=== PATIENT | female | born 1990 | race Caucasian/White ===

== ENCOUNTER → 2016-07-26 | Outpatient (CLI) | payer BC, OTHER | END | disposition home or self-care (01) | LOC: C.PAPS 16:03 | PROVIDERS: ATTEND Obstetrics & Gynecology | DX: Z01.419 Encounter for gynecological examination (general) (routine) without abnormal findings (principal) ==

== ENCOUNTER 2020-08-01 16:02 | Inpatient (IN) ==
[2020-08-01] MEDS ORDERED: OXYTOCIN 30 UNITS/500 ML BAG IV PRN ×2 (18:35→19:27)
--- NOTE | 2020-08-01 18:53 | History & Physical Report ---
Date of Service August 01, 2020 Assessment & Plan (1) : 29 y/o at 40 6/7 wga presenting for post-EDC IOL VSS Fetus cat 1 Labor - kaufman bulb placement and risks discussed including risk of ROM, pt verbalized understanding and amenable. 35cc kaufman placed w/o difficulty, pt tolerated procedure well. Will start pit when nursing staff is available to do so GBS neg Epidural PRN Admission and Anticipated Discharge Date Admission Date: August 01, 2020 History of Present Illness Chief Complaint: IOL Primary Care Provider: Jeremiah Kim MD 29 y/o at 40 6/7 wga w/ TEJ 07/26 by LMP 10/19 c/w [address] [place] [address] who presents for IOL. +FM; denies regular ctx, LOF, VB PNI: Hypothyroid - on synthroid 125mcg/d CF carrier, FOB neg Past OUTREACH LIAISON Hx: G1 SAB G2 SAB G3 current Menarche 12, irreg cycles due to PCOS Denies hx STIs 2017 pap neg cytology, no hx abnl pap Allergies Allergy/AdvReac Type Severity Reaction Status Date / Time No Known Allergies Allergy Verified 08/01/20 18:20 Home Medications Medication Instructions Recorded Confirmed Type PNV cmb#95-ferrous fumarate-FA 1 tab PO QAM 07/13/18 08/01/20 History [] cetirizine [Zyrtec] 10 mg PO QAM 07/13/18 08/01/20 History levothyroxine 112 mcg capsule 125 mcg PO DAILY cap 06/29/20 08/01/20 History Patient History Medical History (Updated 06/29/20 @ 15:50 by Amina Dent MD) Anxiety HX Environmental allergies CATS/DOGS History of chicken pox Hypothyroidism Ovarian cyst Polycystic ovarian syndrome Scoliosis Surgical History (Updated 01/05/20 @ 10:59 by Esme Gutierrez) History of myringotomy S/P wisdom tooth extraction Family History (Updated 01/05/20 @ 11:00 by Esme Gutierrez) Grandfather (Paternal) Family history of esophageal cancer Grandmother (Maternal) Hypertension Mother Gestational diabetes Denies family history of Ovarian cancer Breast cancer Colorectal cancer Social History (Updated 01/05/20 @ 11:01 by Esme Gutierrez) Smoking Status: Never smoker Second Hand Exposure: No; Hx Alcohol Use: No Hx Substance Use: No Preferred Language: Afghan Communication Ability: Effective Driving Teacher Required: No Beliefs That Will Affect Care: None marital status: marital status details: Arnoldo Anderson (28) [phone] Current Living Situation: Spouse Current Living Situation Comment: lives with spouse, dogs current occupational status: employed current occupation: teacher [employer] Feels Safe at Home: Yes Assistive Devices: None Physical Exam Constitutional: WD/WN, vitals as above Respiratory: normal respiratory effort; no respiratory distress and no labored breathing Psychiatric: A+Ox3, euthymic affect Genitourinary: OB Exam Abdomen: + vertex and + estimated weight (7-8) Manual OB Exam: + cervical dilation 1 cm, + cervical effacement 50% and + station -2 OB Exam Monitor Tracing: + external FHT monitor used, + external uterine monitor used (irreg ctx) and + category I (135/mod/+accel/-decel) Results & Data ([facility]) Vital Signs (Past 12 Hours) Vital Signs Pulse BP 08/01/20 18:19 94 H 112/76 Laboratory Results OB Labs: Blood Type A Positive 01/19/20 Antibody Screen NEGATIVE 01/19/20 Hemoglobin 11.0 g/dL (12.0-16.0) L 05/03/20 Hematocrit 31.9 % (37-47) L 05/03/20 Mean Corpuscular Volume 91.5 fL (80-100) 01/19/20 Platelet Count 236 K/uL (130-400) 01/19/20 Varicella-Zoster IgG Antibody 1174.00 index 04/26/19 Rubella IgG Antibody Immune (Immune) 01/19/20 Rapid Plasma Reagin Nonreactive (Nonreactive) 01/19/20 Hepatitis B Surface Antigen Neg (Neg) 01/19/20 HIV (1&2) Ab and P24 Ag, 4th Gener Neg (Neg) 01/19/20 Glucose 1 Hour 50 gm Load 135 mg/dl (70-130) H 05/03/20 Maternal Serum Alpha Fetoprotein 34.1 ng/mL 02/09/20 OB Optional Labs: Chlamydia trachomatis RNA NOT DETECTED (NOT DETECTED) 01/19/20 Neisseria gonorrhoeae RNA NOT DETECTED (NOT DETECTED) 01/19/20 Thyroid Stimulating Hormone (TSH) 1.400 uIu/ml (0.300-4.500) 01/19/20 Alpha Fetoprotein Triple Screen SEE NOTE 02/09/20 Labs Reviewed: low risk panorama carrier CF 28 week 2 hr gtt nl. akh GBS neg Diagnostic Findings Ant placenta Code Status & VTE Plan VTE Prophylaxis Plan VTE Prophylaxis will be ordered: Yes Coding Level of Care Code None Diagnoses Z34.90
[2020-08-01 19:14] LABS: Hematocrit (blood only) 33.9 % (37-47); Hemoglobin 11.4 g/dL (12.0-16.0); Mean Corpuscular Hemoglobin 30.6 pg (25-34); Mean Corpuscular Hgb Conc 33.6 g/dL (32-36); Mean Corpuscular Volume 90.9 fL (80-100); Mean Platelet Volume 11.3 fL (7.4-10.4); Platelet Count 162 K/uL (130-400); Red Blood Count 3.73 M/uL (4.2-5.4); White Blood Count 5.05 K/uL (4.8-10.8)
--- NOTE | 2020-08-01 22:59 | Labor Progress Brief Note ---
Date of Service August 01, 2020 Assessment & Plan (1) : 29 y/o at 40 6/7 wga presenting for post-EDC IOL VSS Fetus cat 1 Labor - kaufman bulb out, will start pit GBS neg Epidural PRN Admission and Anticipated Discharge Date Admission Date: August 01, 2020 Physical Exam Genitourinary: Manual OB Exam: + cervical dilation 3 cm, + cervical effacement 50% and + station -2 OB Exam Monitor Tracing: + external FHT monitor used, + external uterine monitor used (q3-5) and + category I (150/mod/+accel/-decel) Results & Data ([facility]) Vital Signs (Past 12 Hours) Vital Signs Temp Pulse Resp BP 08/01/20 19:30 98.1 F 87 18 103/64 08/01/20 19:24 76 99/57 L 08/01/20 18:19 94 H 112/76 08/01/20 18:17 97.7 F 18 Coding Level of Care Code None Diagnoses Z34.90
[2020-08-01] MEDS: LACTATED RINGER'S 1,000 ML IV PRN (23:54)
[2020-08-02] MEDS ORDERED: diphenhydrAMINE 50 MG/ML VIAL IV PRN (01:44)
[2020-08-02] MEDS ORDERED: NALOXONE HCL 0.4 MG/1 ML VIAL/CARP IV PRN (01:44)
[2020-08-02] MEDS ORDERED: ONDANSETRON INJ 2 MG/ML 2 ML VIAL IV PRN (01:44)
[2020-08-02] MEDS ORDERED: ePHEDrine sulfate 50 MG/ML AMP IV PRN (01:44)
[2020-08-02] MEDS ORDERED: fentaNYL 2MCG/ML ROPIVACAINE 1.25MG/ML 100 ML BAG EPI PRN ×2 (01:44→11:23)
[2020-08-02] MEDS ORDERED: NALOXONE HCL 1 MG in SODIUM CHLORIDE 0.9% 1000ML 1,000 ML IV PRN (01:44)
[2020-08-02] MEDS ORDERED: ePHEDrine sulfate 50 MG/ML AMP ONE (01:47)
[2020-08-02] MEDS ORDERED: SODIUM CHLORIDE 0.9% INJ 10 ML VIAL ONE ×2 (01:47→10:59)
[2020-08-02] MEDS ORDERED: fentaNYL citrate 100 MCG/2 ML VIAL ONE (01:47)
[2020-08-02] MEDS ORDERED: BUPIVACAINE 0.25% 30 ML VIAL ONE ×2 (01:47→10:59)
[2020-08-02] MEDS ORDERED: fentaNYL 2MCG/ML ROPIVACAINE 1.25MG/ML 100 ML BAG EPI ONE (01:48)
--- NOTE | 2020-08-02 01:48 | Anesthesiology Consultation ---
Date of Service August 02, 2020 Assessment & Plan (1) Encounter for pre-operative examination: Chart Review Chart Review: Acceptable Risk for Labor Epidural Consults Requested none ASA ASA2 Proposed Anesthesia Anesthesia Type: Labor Epidural Risk / Benefits Reviewed With: PT / POA / Parent / Guardian, Accepts Plan and Informed Consent Obtained History Height/Weight Height: 5 ft 2 in Weight: 74.843 kg Allergies Allergy/AdvReac Type Severity Reaction Status Date / Time No Known Allergies Allergy Verified 08/01/20 18:20 Medications Home Medications Medication Instructions Recorded Confirmed Last Taken PNV cmb#95-ferrous fumarate-FA 1 tab PO QAM 07/13/18 08/01/20 07/30/20 20:00 [] cetirizine [Zyrtec] 10 mg PO QAM 07/13/18 08/01/20 08/01/20 06:00 levothyroxine 112 mcg capsule 125 mcg PO DAILY cap 06/29/20 08/01/20 08/01/20 06:00 Active Medications Generic Name Dose Route Start Last Admin Trade Name Freq PRN Reason Stop Dose Admin Lactated Ringer's 1,000 mls @ 125 mls/hr 08/01/20 18:35 08/01/20 23:54 Lr IV 08/03/20 18:34 125 mls/hr .Q8H PRN Administration L&D Protocol Protocol Oxytocin 30 units in 500 mls @ 2 mls/hr 08/01/20 19:27 08/01/20 23:58 Pitocin IV 08/03/20 19:26 0.12 units/hr .Q24H PRN 2 mls/hr Labor Induction/Augmentation Administration Protocol 0.12 UNITS/HR Past Medical History Medical History Anxiety HX Environmental allergies CATS/DOGS History of chicken pox Hypothyroidism Ovarian cyst Polycystic ovarian syndrome Scoliosis Exercise / Class Metabolic Activity II 4-5 Yardwork/Stairs/Walk up hill Past Family History Family History Grandfather (Paternal) Family history of esophageal cancer Grandmother (Maternal) Hypertension Mother Gestational diabetes Denies family history of Ovarian cancer Breast cancer Colorectal cancer Past Surgical History Surgical History History of myringotomy S/P wisdom tooth extraction Past Anesthesia History No Hx of Anesthesia Complications and No Family Hx of Anesthesia Complications History of PONV No Hx of PONV and No Hx of Motion Sickness Social History Smoking Status: Never smoker Hx Alcohol Use: No Hx Substance Use: No substance use type: does not use Physical Exam Vital Signs Last Vital Signs Temp 98.1 F 08/01/20 19:30 Pulse 82 08/02/20 01:06 Resp 18 08/01/20 19:30 BP 101/58 L 08/02/20 01:06 ENMT Mouth: no dentition abnormality Thyromental Distance: > or= 3.5 Finger Breadths Mallampati Class: II Neck normal visual inspection Respiratory normal respiratory effort Auscultation: lungs clear to auscultation bilaterally Cardiovascular Rate/Rhythm: regular rate and regular rhythm Testing Laboratory Results 08/01/20 18:40
[2020-08-02] MEDS: LACTATED RINGER'S 1,000 ML IV PRN ×2 (03:51→11:30)
--- NOTE | 2020-08-02 06:18 | Labor Progress Brief Note ---
Date of Service August 02, 2020 Subjective Comfortable w/ epidural, chux appears to be c/w srom Assessment & Plan (1) : 29 y/o at 40 6/7 wga presenting for post-EDC IOL VSS Fetus cat 1 Labor - pit at 4, making good progress. Appears to have srom b/w last exam and now, forebag was palpated and arom'd. Continue to monitor GBS neg Epidural in place Admission and Anticipated Discharge Date Admission Date: August 01, 2020 Physical Exam Genitourinary: Manual OB Exam: + cervical dilation 4 cm, + cervical effacement 70%, + station -2 and + amniotic fluid (AROM forebag) clear OB Exam Monitor Tracing: + external FHT monitor used, + external uterine monitor used (q3-4) and + category I (135/mod/+accel/-decel) Results & Data ([facility]) Vital Signs (Past 12 Hours) Vital Signs Temp Pulse Resp BP Pulse Ox 08/02/20 06:12 82 95 08/02/20 06:09 107 H 94 08/02/20 06:07 96 H 96 08/02/20 06:03 80 100/59 L 08/02/20 06:02 79 94 08/02/20 05:57 79 95 08/02/20 05:52 82 94 08/02/20 05:48 63 99/56 L 94 08/02/20 05:47 75 94 08/02/20 05:42 86 93 08/02/20 05:38 71 94 08/02/20 05:37 91 H 95 08/02/20 05:33 71 90/51 L 94 08/02/20 05:32 73 95 08/02/20 05:27 82 93 08/02/20 05:22 76 93 08/02/20 05:19 67 84/51 L 08/02/20 05:17 75 93 08/02/20 05:12 83 94 08/02/20 05:10 71 94 08/02/20 05:07 78 94 08/02/20 05:03 75 87/51 L 08/02/20 05:02 78 94 08/02/20 05:00 75 94 08/02/20 04:57 78 94 08/02/20 04:53 89 94 08/02/20 04:52 87 96 08/02/20 04:47 79 85/52 L 95 08/02/20 04:42 77 94 08/02/20 04:37 76 95 08/02/20 04:32 69 88/52 L 97 08/02/20 04:27 73 96 08/02/20 04:22 72 98 08/02/20 04:18 63 94/52 L 08/02/20 04:17 72 97 08/02/20 04:12 103 H 98 08/02/20 04:10 70 94 08/02/20 04:07 94 H 97 08/02/20 04:05 97.7 F 18 08/02/20 04:03 70 97/57 L 08/02/20 04:02 65 93 08/02/20 04:01 73 91 08/02/20 03:57 89 95 08/02/20 03:54 68 94 08/02/20 03:52 85 97 08/02/20 03:47 82 98/58 L 97 08/02/20 03:46 78 94 08/02/20 03:42 79 97 08/02/20 03:40 77 94 08/02/20 03:37 77 96 08/02/20 03:34 93 H 94 08/02/20 03:33 111 H 92/54 L 08/02/20 03:32 111 H 96 08/02/20 03:27 96 H 96 08/02/20 03:22 73 95 08/02/20 03:19 100 H 92/57 L 08/02/20 03:17 71 95 08/02/20 03:15 70 94 08/02/20 03:12 93 H 96 08/02/20 03:09 74 94 08/02/20 03:07 88 95 08/02/20 03:03 76 94 08/02/20 03:02 73 97/66 L 97 08/02/20 02:57 87 99 08/02/20 02:52 87 99 08/02/20 02:47 83 97/64 L 97 08/02/20 02:42 76 95 08/02/20 02:37 73 97 08/02/20 02:34 80 105/65 08/02/20 02:32 80 97 08/02/20 02:27 74 97 08/02/20 02:22 89 97 08/02/20 02:17 85 109/61 98 08/02/20 02:13 93 H 110/74 08/02/20 02:12 93 H 99 08/02/20 02:11 90 107/74 08/02/20 02:08 96 H 114/74 08/02/20 02:07 93 H 99 08/02/20 02:05 94 H 120/77 08/02/20 02:02 95 H 125/73 100 08/02/20 01:58 89 130/82 08/02/20 01:57 102 H 100 08/02/20 01:56 90 121/79 08/02/20 01:52 93 H 100 08/02/20 01:48 89 126/80 08/02/20 01:47 84 100 08/02/20 01:06 82 101/58 L 08/02/20 00:36 91 H 103/73 08/02/20 00:15 98.1 F 08/02/20 00:00 76 96/53 L 08/01/20 23:38 75 85/51 L 08/01/20 19:30 98.1 F 87 18 103/64 08/01/20 19:24 76 99/57 L 08/01/20 18:19 94 H 112/76 08/01/20 18:17 97.7 F 18 Coding Level of Care Code None Diagnoses Z34.90
[2020-08-02] MEDS: LEVOTHYROXINE SODIUM 125 MCG TABLET PO SCH (14:37)
[2020-08-02] MEDS ORDERED: oxyCODONE/ACETAMINOPHEN 5mg/325mg TAB PO PRN (14:49)
[2020-08-02] MEDS ORDERED: DIPHTHERIA/TETANUS/PERTUSSIS 0.5 ML SYR/VIAL IM ONE (14:49)
[2020-08-02] MEDS ORDERED: OXYTOCIN 30 UNITS/500 ML BAG IV PRN (14:49)
[2020-08-02] MEDS ORDERED: bisacodyL 10 MG SUPP PR PRN (14:49)
[2020-08-02] MEDS ORDERED: SUPERCREAM 0.870% 15 GM JAR EXT PRN (14:49)
[2020-08-02] MEDS ORDERED: HYDROCORTISONE ACETATE 25 MG SUPP PR PRN (14:49)
[2020-08-02] MEDS ORDERED: BENZOCAINE 20% AER SPR 82.5 GM CAN EXT PRN (14:49)
--- NOTE | 2020-08-02 14:56 | Delivery Summary ---
Vaginal Delivery Summary Date of Service August 02, 2020 Patient is a 29-year-old 3 para 0-0-2-0 white female who presents at 41 weeks for induction of labor for postterm . She had a cervical balloon placed successfully which then was expelled spontaneously. Membranes were ruptured for clear fluid following which she received effective epidural analgesia. She progressed to full dilation, and pushed to over intact perineum. After the head was delivered, the rest of the delivered easily. There was a shoulder cord that was reduced after the head was delivered. The was placed on the mother's abdomen for further attention and drying. The had poor tone and respiratory effort after stimulation. The cord was then clamped and cut and the baby was placed on the baby bed for further evaluation and treatment. Please see the nurses notes for the evaluation and treatment of the infant. The infant then had spontaneous crying and was moving all 4 limbs. The placenta was expressed intact with a three- vessel cord. First-degree vaginal tear was repaired with 3-0 chromic in the usual fashion. bleeding was controlled with dilute Pitocin. Estimated blood loss was 250 cc. Mother and were then doing well after the initial resuscitation of the infant. Vaginal Delivery Summary and 1st Degree [place] [facility] Charge Delivery Type Details: and 1st Degree LAC
[2020-08-02] MEDS: IBUPROFEN 600 MG TAB PO PRN ×2 (15:50→20:33)
--- NOTE | 2020-08-02 16:25 | Anesthesia Procedure Note ---
Date of Service August 02, 2020 Anesthesia Post Epidural Note Vital Signs Vital Signs: Temp Pulse Resp BP Pulse Ox 36.9 C 86 18 105/64 97 08/02/20 14:45 08/02/20 16:16 08/02/20 15:15 08/02/20 16:16 08/02/20 14:22 Pain Intensity Abdomen: Pain Intensity: 1 Notes Mental Status: alert / awake / arousable and participated in evaluation Nausea / Vomiting: adequately controlled Pain: adequately controlled Airway Patency, RR, SpO2: stable & adequate BP & HR: stable & adequate Hydration State: stable & adequate Neuraxial Anesthesia: was administered and sensory block is resolving Anesthetic Complications: no major complications apparent and Pt Satisfied with anesthetic care Epidural: Removed without complications and With tip intact Notes: BHARATH Dyer pulled epidural. Patient with no problems.
[2020-08-02] MEDS: ACETAMINOPHEN 325 MG TAB PO PRN (18:26)
[2020-08-02] MEDS: DOCUSATE SODIUM 100 MG CAP PO SCH (20:33)
[2020-08-03] MEDS: IBUPROFEN 600 MG TAB PO PRN ×4 (02:02→20:01)
[2020-08-03] MEDS: LEVOTHYROXINE SODIUM 125 MCG TABLET PO SCH (06:19)
[2020-08-03 07:23] LABS: Hematocrit (blood only) 30.7 % (37-47); Hemoglobin 10.3 g/dL (12.0-16.0); Mean Corpuscular Hemoglobin 30.5 pg (25-34); Mean Corpuscular Hgb Conc 33.6 g/dL (32-36); Mean Corpuscular Volume 90.8 fL (80-100); Mean Platelet Volume 10.8 fL (7.4-10.4); Platelet Count 151 K/uL (130-400); RDW Standard Deviation 42.6 fL (36.4-46.3); Red Blood Count 3.38 M/uL (4.2-5.4); White Blood Count 10.93 K/uL (4.8-10.8)
--- NOTE | 2020-08-03 07:29 | Obstetrical Progress Note ---
Date of Service August 03, 2020 Assessment & Plan (1) Encounter for care and examination after delivery: satisfactory course continue current care plan Subjective Ambulation: ambulating normally Voiding: no voiding problems Diet Tolerance:: regular diet Lochia:: Moderate Feeding Type:: breast feeding doing well this AM lochia moderate voiding without difficulty Physical Exam Constitutional WD/WN, vitals as above Psychiatric A+Ox3, euthymic affect Genitourinary OB Exam Abdomen: + fundal height Fundus: + firm and + relation to umbilicus (at U) (-) calf tenderness Results & Data ([facility]) Vital Signs (Past 12 Hours) Vital Signs Temp Pulse Resp BP Pulse Ox 08/03/20 03:40 97.7 F 84 16 96/62 L 95 08/02/20 23:40 98.4 F 81 18 102/69 96 Laboratory Results 10.3/30.7 today
[2020-08-03] MEDS: DOCUSATE SODIUM 100 MG CAP PO SCH ×2 (08:58→20:01)
[2020-08-03] MEDS: PRENATAL VITAMIN 1 TAB PO SCH (08:58)
[2020-08-03] MEDS: ACETAMINOPHEN 325 MG TAB PO PRN ×2 (15:55→21:50)
[2020-08-03] MEDS ORDERED: bisacodyL 5 MG TABEC PO SCH (20:00)
[2020-08-04] MEDS: LEVOTHYROXINE SODIUM 125 MCG TABLET PO SCH (06:08)
[2020-08-04] MEDS: IBUPROFEN 600 MG TAB PO PRN (06:08)
--- NOTE | 2020-08-04 06:12 | Obstetrical Progress Note ---
Date of Service August 04, 2020 Assessment & Plan (1) Encounter for care and examination after delivery: Ready for D/C today, instructions reviewed. Subjective Ambulation: ambulating normally Voiding: no voiding problems Passing Gas:: Yes Diet Tolerance:: regular diet Lochia:: Small Feeding Type:: breast feeding Physical Exam Constitutional WD/WN, vitals as above Eyes PERRL, conjunctivae normal, anicteric sclerae Neck normal visual inspection Respiratory normal respiratory effort and able to speak in complete sentences; no respiratory distress and no labored breathing Cardiovascular Rate/Rhythm: regular rate and regular rhythm Extremities: no edema Chest (Breasts) Chest: normal inspection of chest Gastrointestinal (Abdomen) Inspection/Auscultation: abdomen normal to inspection Soft, postgravid Psychiatric A+Ox3, euthymic affect Genitourinary OB Exam Abdomen: + fundal height Fundus: + firm and + relation to umbilicus (fundus just below umbilicus); not tender Results & Data ([facility]) Vital Signs (Past 12 Hours) Vital Signs Temp Pulse Resp BP Pulse Ox 08/03/20 22:53 98.1 F 69 16 94/67 L 97
[2020-08-04 07:12] LABS: Hematocrit (blood only) 31.7 % (37-47); Hemoglobin 10.8 g/dL (12.0-16.0)
[2020-08-04] MEDS: PRENATAL VITAMIN 1 TAB PO SCH (08:57)
[2020-08-04] MEDS: DOCUSATE SODIUM 100 MG CAP PO SCH (08:57)
== END 2020-08-04 13:40 | disposition home or self-care (01) | DRG 807 ==
LOC: 4S1 18:06 → 4S2 08-02 16:55

== ENCOUNTER 2022-09-03 09:08 | Inpatient (IN) ==
[2022-09-03] MEDS ORDERED: LIDOCAINE 1% LOCAL 20 ML VIAL INFIL PRN (10:32)
[2022-09-03] MEDS ORDERED: OXYTOCIN 30 UNITS/500 ML BAG IV PRN ×3 (10:32→17:16)
--- NOTE | 2022-09-03 10:33 | History & Physical Report ---
Date of Service September 03, 2022 Assessment & Plan (1) 39 weeks gestation of : (2) PROM (premature rupture of membranes): Plan admit, iv, labs. plan pitocin. pt agreeable. epidural when desires. fhts categ 1. History of Present Illness Chief Complaint: srom at 7am today, clear fluid Primary Care Provider: Jeremiah Kim MD 31yo at 39+wks ega presents to L&D with above cc. No regular ctx. No vb. +FM. PNC c/b 1.CF carrier, spouse is not 2. Hypothyroid, medication managed in preg PNL rh pos, ri, gbs neg OBH: x 1, chemical preg x 2 GYNH: nl paps no stds. h/o PCOS Allergies Allergy/AdvReac Type Severity Reaction Status Date / Time cat dander Allergy Intermediate Swelling Verified 08/29/22 12:24 of the Eye seasonal Allergy Mild Sneezing Uncoded 08/22/22 11:52 Home Medications Medication Instructions Recorded Confirmed Type cetirizine 10 mg tablet (Zyrtec) 10 mg PO QAM 07/13/18 09/03/22 History vit no.95-ferrous 1 tab PO QAM 07/13/18 08/29/22 History fumarate 28 mg-folic acid 800 mcg tablet () levothyroxine 112 mcg capsule 125 mcg PO DAILY 07/02/22 08/29/22 History Patient History Medical History Anxiety Environmental allergies History of chicken pox Hypothyroidism Ovarian cyst Polycystic ovarian syndrome Scoliosis Surgical History History of myringotomy S/P wisdom tooth extraction Family History Grandfather (Paternal) Family history of esophageal cancer Grandmother (Maternal) Hypertension Mother Gestational diabetes Denies family history of Ovarian cancer Breast cancer Colorectal cancer Social History (Updated 01/22/22 @ 13:41 by Rylie Orellana) Smoking Status: Never smoker Second Hand Exposure: No; Do You Dip or Chew Tobacco: No; Hx Alcohol Use: No Hx Substance Use: No Preferred Language: Yoruba Communication Ability: Effective Tierce Filler Required: No Beliefs That Will Affect Care: None marital status: marital status details: Arnoldo Anderson (30) [phone] Current Living Situation: Spouse Current Living Situation Comment: Messi (2yo) current occupational status: employed and unemployed current occupation: stay at home mom Other Information That Helps Us Care for You: No Feels Safe at Home: Yes Safety Concerns: Feels Safe At This Time Assistive Devices: None Review of Systems as per Subjective / HPI Physical Exam Constitutional: WD/WN, vitals as above Respiratory: normal respiratory effort, lungs clear to auscultation Cardiovascular: Rate/Rhythm: regular rate and regular rhythm Gastrointestinal (Abdomen): soft gravid nt efw 7-8# Musculoskeletal: no edema nontender calves Neurologic: grossly normal Psychiatric: A+Ox3, euthymic affect Genitourinary: Manual OB Exam: + cervical dilation 3 cm, + cervical effacement (75%) and + station high OB Exam Monitor Tracing: + external FHT monitor used, + external uterine monitor used (irreg with irrit), + category I and + normal FHT variability Results & Data Vital Signs (Past 12 Hours) Vital Signs Temp Pulse Resp BP 09/03/22 09:47 98.2 F 09/03/22 09:13 20 09/03/22 09:13 98.4 F 09/03/22 09:17 117 H 106/64 Coding Level of Care Code None Diagnoses 39 weeks gestation of Z3A.39 PROM (premature rupture of membranes) O42.90
[2022-09-03 11:05] LABS: Hematocrit (blood only) 35.8 % (37.0-47.0); Hemoglobin 12.5 g/dl (12.0-16.0); Mean Corpuscular Hemoglobin 31.9 pg (25.0-34.0); Mean Corpuscular Hgb Conc 34.9 g/dL (32.0-36.0); Mean Corpuscular Volume 91.3 fL (80.0-100.0); Mean Platelet Volume 11.2 fL (9.4-12.4); Platelet Count 123 K/uL (130-400); RDW Coefficient of Variation 13.5 % (11.5-14.5); Red Blood Count 3.92 M/uL (4.20-5.40); White Blood Count 4.59 K/ul (4.8-10.8)
[2022-09-03] MEDS ORDERED: fentaNYL citrate PF 100 MCG/2 ML VIAL ONE ×2 (11:35→15:18)
[2022-09-03] MEDS ORDERED: BUPIVACAINE 0.25% PF 30 ML VIAL ONE (11:36)
[2022-09-03] MEDS ORDERED: ePHEDrine sulfate 50 MG/ML AMP ONE (11:36)
[2022-09-03] MEDS ORDERED: LIDOCAINE 2%/EPINEPHRINE 1:200,000 20 ML PF ONE (11:36)
[2022-09-03] MEDS ORDERED: SODIUM CHLORIDE 0.9% PF INJ 10 ML VIAL ONE (11:36)
[2022-09-03] MEDS ORDERED: fentaNYL 2MCG/ML ROPIVACAINE 1.25MG/ML 100 ML BAG EPI ONE (11:36)
[2022-09-03] MEDS: LACTATED RINGER'S 1,000 ML IV PRN ×2 (11:42→16:38)
--- NOTE | 2022-09-03 12:25 | Anesthesiology Consultation ---
Date of Service September 03, 2022 Assessment & Plan Chart Review Chart Review: Acceptable Risk for Labor Epidural Consults Requested none History Height/Weight Height: 5 ft 2 in Weight: 75.296 kg Allergies Allergy/AdvReac Type Severity Reaction Status Date / Time cat dander Allergy Intermediate Swelling Verified 08/29/22 12:24 of the Eye seasonal Allergy Mild Sneezing Uncoded 08/22/22 11:52 Medications Home Medications Medication Instructions Recorded Confirmed Last Taken cetirizine 10 mg tablet (Zyrtec) 10 mg PO QAM 07/13/18 09/03/22 09/03/22 07:00 vit no.95-ferrous 1 tab PO QAM 07/13/18 08/29/22 07/30/20 20:00 fumarate 28 mg-folic acid 800 mcg tablet () levothyroxine 112 mcg capsule 125 mcg PO DAILY 07/02/22 08/29/22 09/03/22 07:00 Active Medications Generic Name Dose Route Start Last Admin Trade Name Freq PRN Reason Stop Dose Admin Oxytocin 30 units in 500 mls @ 1 mls/hr 09/03/22 10:32 09/03/22 11:42 Pitocin IV 09/05/22 10:31 0.06 units/hr .Q24H PRN 1 mls/hr Labor Induction/Augmentation Administration Protocol 0.06 UNITS/HR Lactated Ringer's 1,000 mls @ 125 mls/hr 09/03/22 10:32 09/03/22 11:42 Lr IV 09/05/22 10:31 999 mls/hr .Q8H PRN Administration L&D Protocol Protocol Past Medical History Medical History Anxiety Environmental allergies History of chicken pox Hypothyroidism Ovarian cyst Polycystic ovarian syndrome Scoliosis Past Family History Family History Grandfather (Paternal) Family history of esophageal cancer Grandmother (Maternal) Hypertension Mother Gestational diabetes Denies family history of Ovarian cancer Breast cancer Colorectal cancer Past Surgical History Surgical History History of myringotomy S/P wisdom tooth extraction Social History Smoking Status: Never smoker Do You Dip or Chew Tobacco: No Hx Alcohol Use: No Hx Substance Use: No substance use type: does not use Physical Exam Vital Signs Last Vital Signs Temp 36.8 C 09/03/22 09:47 Pulse 105 H 09/03/22 11:48 Resp 20 09/03/22 09:47 BP 117/67 09/03/22 11:48 Testing Laboratory Results 09/03/22 10:41
[2022-09-03] MEDS: ePHEDrine sulfate 50 MG/ML AMP IV PRN ×2 (12:44→13:39)
[2022-09-03] MEDS ORDERED: LIDOCAINE 2%/EPINEPHRINE 1:200,000 20 ML PF EPI STA (12:48)
[2022-09-03] MEDS ORDERED: fentaNYL 2MCG/ML ROPIVACAINE 1.25MG/ML 100 ML BAG EPI PRN (12:48)
[2022-09-03] MEDS ORDERED: fentaNYL citrate PF 100 MCG/2 ML VIAL EPI PRN (12:48)
[2022-09-03] MEDS ORDERED: SODIUM CHLORIDE 0.9% PF INJ 10 ML VIAL EPI STA (12:48)
[2022-09-03] MEDS ORDERED: ROPIVACAINE 0.5% PF 5 MG/ML 20 ML VIAL EPI PRN (12:48)
[2022-09-03] MEDS ORDERED: BUPIVACAINE 0.25% PF 30 ML VIAL EPI PRN (12:48)
[2022-09-03] MEDS ORDERED: BUPIVACAINE 0.25% PF 30 ML VIAL EPI STA (12:48)
[2022-09-03] MEDS ORDERED: NALOXONE HCL 1 MG in SODIUM CHLORIDE 0.9% 1000ML 1,000 ML IV PRN (12:48)
[2022-09-03] MEDS ORDERED: SODIUM CHLORIDE 0.9% PF INJ 10 ML VIAL EPI PRN (12:48)
[2022-09-03] MEDS ORDERED: NALBUPHINE HCL INJ 10 MG/ML AMP IV PRN (12:48)
[2022-09-03] MEDS ORDERED: LIDOCAINE 2% MPF LOCAL 5 ML VIAL EPI PRN (12:48)
[2022-09-03] MEDS ORDERED: NALOXONE HCL 0.4 MG/1 ML VIAL/CARP IV PRN (12:48)
[2022-09-03] MEDS ORDERED: diphenhydrAMINE 50 MG/ML VIAL IV PRN (12:48)
[2022-09-03] MEDS ORDERED: fentaNYL citrate PF 100 MCG/2 ML VIAL EPI STA (12:48)
[2022-09-03] MEDS ORDERED: NURSING L&D Epidural Breakthrough Pain Update ONE (14:04)
--- NOTE | 2022-09-03 15:34 | Anesthesia Procedure Note ---
Date of Service September 03, 2022 Anesthesia Epidural Re-Dose Vital Signs Temp Pulse Resp BP Pulse Ox 37.0 C 90 20 112/68 98 09/03/22 13:30 09/03/22 15:28 09/03/22 14:01 09/03/22 15:27 09/03/22 15:28 Notes Pain Intensity: 1 Dilatation (cm): 9.5 Effacement (%): 100 Called by nursing to evaluate epidural as the patient is having increased pain. The epidural was re-dosed with the following medications (all medications via epidural route) after negative aspiration of the epidural catheter for CSF/HEME. 2% lidocaine 5ml w/ epi 1:200,000 with fentanyl 100mcg. After Epidural Re-Dose Mental Status: alert / awake / arousable Pain: improving with treatment Airway Patency, RR, SpO2: stable & adequate BP & HR: stable & adequate
--- NOTE | 2022-09-03 15:34 | Labor Progress Brief Note ---
Date of Service September 03, 2022 Subjective feeling pain with ctx but not rectal pressure Assessment & Plan (1) 39 weeks gestation of : (2) PROM (premature rupture of membranes): Plan continue with pit. plan recheck cx in 20-30min and begin 2nd stage. reposition as needed. anesth to help with pain as needed. fhts categ 1. Admission and Anticipated Discharge Date Admission Date: September 03, 2022 Physical Exam Constitutional: WD/WN, vitals as above Genitourinary: Manual OB Exam: + cervical dilation (rim on left), + cervical effacement 100% and + station + 1 OB Exam Monitor Tracing: + external FHT monitor used, + external uterine monitor used, + category I, + normal FHT variability and + early decelerations present attempted push to reduce lip. not much effective effort by patient. Results & Data Vital Signs (Past 12 Hours) Vital Signs Temp Pulse Resp BP Pulse Ox 09/03/22 13:30 98.6 F 09/03/22 11:30 98.4 F 09/03/22 09:47 98.2 F 20 09/03/22 15:28 98 09/03/22 15:28 90 09/03/22 15:27 85 09/03/22 15:27 112/68 09/03/22 15:23 95 09/03/22 15:23 93 H 09/03/22 15:20 94 09/03/22 15:20 94 H 09/03/22 15:18 97 09/03/22 15:18 110 H 09/03/22 15:13 96 09/03/22 15:13 100 H 09/03/22 15:09 113 H 09/03/22 15:09 103/61 09/03/22 15:08 95 09/03/22 15:08 105 H 09/03/22 15:03 95 09/03/22 15:04 94 09/03/22 15:03 84 09/03/22 15:04 96 H 09/03/22 14:58 95 09/03/22 14:58 120 H 09/03/22 14:56 94 09/03/22 14:56 89 09/03/22 13:45 20 09/03/22 13:45 20 09/03/22 14:53 94 09/03/22 14:53 113 H 09/03/22 14:53 88/58 L 09/03/22 13:31 20 09/03/22 13:31 20 09/03/22 14:01 20 09/03/22 14:01 20 09/03/22 14:50 94 09/03/22 14:50 105 H 09/03/22 14:48 94 09/03/22 14:48 113 H 09/03/22 14:43 93 09/03/22 14:43 81 09/03/22 14:38 95 09/03/22 14:38 105 H 09/03/22 14:38 97/59 L 09/03/22 14:37 94 09/03/22 14:37 82 09/03/22 14:33 97 09/03/22 14:33 107 H 09/03/22 14:28 96 09/03/22 14:28 107 H 09/03/22 14:27 94 09/03/22 14:27 97 H 09/03/22 14:25 93 H 09/03/22 14:25 96/62 L 09/03/22 14:23 97 09/03/22 14:23 101 H 09/03/22 14:18 96 09/03/22 14:18 98 H 09/03/22 14:13 98 09/03/22 14:13 80 09/03/22 14:10 94 H 09/03/22 14:10 93/61 L 09/03/22 14:08 97 09/03/22 14:08 83 09/03/22 14:03 97 09/03/22 14:03 87 09/03/22 13:58 99 09/03/22 13:58 84 09/03/22 13:59 85 09/03/22 13:59 93/54 L 09/03/22 13:53 97 09/03/22 13:53 84 09/03/22 13:54 84 09/03/22 13:54 91/52 L 09/03/22 13:48 98 09/03/22 13:48 86 09/03/22 13:43 99 09/03/22 13:43 80 09/03/22 13:42 80 09/03/22 13:42 94/52 L 09/03/22 13:40 95 H 09/03/22 13:40 81/50 L 09/03/22 13:38 97 09/03/22 13:38 83 09/03/22 13:38 85/49 L 09/03/22 13:33 96 09/03/22 13:33 95 H 09/03/22 13:20 20 09/03/22 13:20 20 09/03/22 12:50 20 09/03/22 12:50 20 09/03/22 13:05 20 09/03/22 13:05 20 09/03/22 13:28 99 09/03/22 13:28 90 09/03/22 13:23 100 09/03/22 13:23 115 H 09/03/22 13:24 127 H 09/03/22 13:24 98/64 L 09/03/22 13:18 99 09/03/22 13:18 79 09/03/22 13:13 98 09/03/22 13:13 114 H 09/03/22 13:08 100 09/03/22 13:08 87 09/03/22 13:06 105 H 09/03/22 13:06 103/67 09/03/22 13:03 98 09/03/22 13:03 89 09/03/22 12:59 91 H 09/03/22 12:59 103/58 L 09/03/22 12:58 99 09/03/22 12:58 106 H 09/03/22 12:56 95 H 09/03/22 12:56 113/67 09/03/22 12:53 98 09/03/22 12:53 112 H 09/03/22 12:50 98/53 L 09/03/22 12:48 97 09/03/22 12:48 91 H 09/03/22 12:48 98/55 L 09/03/22 12:47 86 09/03/22 12:47 110/60 09/03/22 12:44 113 H 09/03/22 12:44 82/55 L 09/03/22 12:43 97 09/03/22 12:43 89 09/03/22 12:42 117 H 09/03/22 12:42 94/59 L 09/03/22 12:40 106 H 09/03/22 12:40 112/68 09/03/22 12:38 97 09/03/22 12:38 93 H 09/03/22 12:35 93 H 09/03/22 12:35 109/65 09/03/22 12:33 100 09/03/22 12:33 100 H 09/03/22 12:28 99 09/03/22 12:28 99 H 09/03/22 12:28 119/73 09/03/22 11:48 105 H 09/03/22 11:48 117/67 09/03/22 09:13 20 09/03/22 09:13 98.4 F 20 09/03/22 09:17 117 H 106/64 Coding Level of Care Code None Diagnoses 39 weeks gestation of Z3A.39 PROM (premature rupture of membranes) O42.90
[2022-09-03] MEDS ORDERED: HYDROCORTISONE ACETATE 25 MG SUPP PR PRN (17:16)
[2022-09-03] MEDS ORDERED: bisacodyL 10 MG SUPP PR PRN (17:16)
[2022-09-03] MEDS ORDERED: BENZOCAINE 20% SPRY 85 APPLN/85 GM CAN EXT PRN (17:16)
[2022-09-03] MEDS ORDERED: DIPHTHERIA/TETANUS/PERTUSSIS Vaccine (Tdap, Age 7+yrs) 0.5mL SYR/VL IM ONE (17:16)
[2022-09-03] MEDS ORDERED: oxyCODONE/ACETAMINOPHEN 5mg/325mg TAB PO PRN (17:16)
--- NOTE | 2022-09-03 17:20 | Delivery Summary ---
Vaginal Delivery Summary Date of Service September 03, 2022 Vaginal Delivery Summary and 2nd Degree LAC The patient dilated to complete and pushed to deliver a viable male infant Apgars and 9 via over 2nd degree perineal laceration. Loose nuchal x 1 reduced at perineum. Mouth and nose bulb suctioned at perineum. Shoulders and body delivered with ease. was not vigorous and crying at and so cord rapidly clamped and to maternal abdomen where the cord was then doubly clamped and cut and infant to radiant warmer for attention. Of note with delivery of baby large gush of blood immediately followed and placenta rapidly delivered spontaneously and intact, three-vessel cord and true knot noted. Cord blood and gases obtained. Hemostasis achieved with dilute pitocin and uterine massage and drainage of the bladder for approximately 100 cc under sterile conditions. Laceration repaired with 3-0 vicryl in layers. Cervix and sulci intact. EBL 500 cc. Mother and baby stable in recovery. Circumstances of delivery reviewed with patient. [facility] [place] Charge Delivery Type Details: and 2nd Degree LAC
[2022-09-03] MEDS ORDERED: OXYTOCIN 20 UNITS in LACTATED RINGER'S 1,000 ML IV SCH (17:30)
[2022-09-03 17:31] LABS: Base Excess Cord Venous Blood -7.5 mEq/L (-7.7-1.9); Cord Venous Blood HCO3 18 mmol/L (18.4-26.8); Cord Venous Blood PCO2 37 mmHg (30.4-57.2); Cord Venous Blood PO2 34 mmHg (14.1-43.3)
--- NOTE | 2022-09-03 17:33 | Anesthesia Procedure Note ---
Date of Service September 03, 2022 Anesthesia Post Epidural Note Vital Signs Vital Signs: Temp Pulse Resp BP Pulse Ox 36.9 C 81 20 89/53 L 100 09/03/22 15:31 09/03/22 17:28 09/03/22 15:31 09/03/22 17:18 09/03/22 17:28 Pain Intensity Left Lower Abdomen: Pain Intensity: 5 Abdomen: Pain Intensity: 1 Notes Mental Status: alert / awake / arousable and participated in evaluation Nausea / Vomiting: adequately controlled Pain: adequately controlled Airway Patency, RR, SpO2: stable & adequate BP & HR: stable & adequate Hydration State: stable & adequate Neuraxial Anesthesia: was administered and sensory block is resolving Anesthetic Complications: no major complications apparent and Pt Satisfied with anesthetic care Epidural: Removed without complications and With tip intact Notes: BHARATH Dyer pulled epidural. Patient with no problems.
[2022-09-03 17:34] LABS: Base Excess Cord Arterial Bld -12.9 mEq/L (-9-1.8); CO2 Cord Arterial Blood 80 mmHg (39.1-73.5); HCO3 Cord Arterial Blood 20 mmol/L (19.7-28.5); Oxygen Sat Cord Arterial Blood < 60.0 % (<60); PO2 Cord Arterial Blood 12 mmHg (4.1-31.7)
[2022-09-03] MEDS: IBUPROFEN 600 MG TAB PO PRN ×2 (18:46→23:19)
[2022-09-03] MEDS: ACETAMINOPHEN 325 MG TAB PO PRN (20:33)
[2022-09-03] MEDS: DOCUSATE SODIUM 100 MG CAP PO SCH (22:49)
[2022-09-04] MEDS: ACETAMINOPHEN 325 MG TAB PO PRN ×3 (02:13→20:05)
[2022-09-04 06:26] LABS: Hematocrit (blood only) 30.1 % (37.0-47.0); Hemoglobin 10.5 g/dl (12.0-16.0)
--- NOTE | 2022-09-04 06:50 | Obstetrical Progress Note ---
Date of Service <Brandie Ford MD - Last Filed: 09/04/22 07:50> September 04, 2022 Assessment & Plan <Brandie Ford MD - Last Filed: 09/04/22 07:50> (1) Spontaneous vaginal delivery: Patient with the above mentioned history and findings was evaluated at bedside and found awake, alert, oriented in all spheres, afebrile, and in no acute distress. Vital signs showed no fever and blood pressures remained stable. She has not had symptoms of severity (e.g. vision changes, headaches, oliguria, RUQ pain, etc.). Her pain intensity is rated as a 2 in a 10-point scale, and is adequately controlled with analgesia. Her blood type is A positive and hemoglobin is adequate at 12.5 g/dL. Serologies are negative for GBS and patient is Rubella immune. Overall, patient is doing well clinically. Therefore, will encourage ambulation as tolerated and will resume regular diet. Will continue monitoring pain levels and management with Motrin PRN. Patient is encouraged to breastfeed and to notify changes in normal lochia such as excessive bleeding (using more than 1 pad per hour), foul smell, or purulent appearance. All questions were answered. <Claudia Magana MD, FACOG - Last Filed: 09/04/22 07:56> (1) Spontaneous vaginal delivery: Subjective <Brandie Ford MD - Last Filed: 09/04/22 07:50> Мария is a 31 y/o female who is now PPD # 1 following Spontaneous Vaginal Delivery at 39 4/7 weeks after PROM on 7am of yesterday morning. Reports feeling well overall this morning. Refers mild abdominal cramping & 2/10 pain well managed on analgesics. Voiding spontaneously without difficulty. Tolerating meals overnight and able to ambulate some. She has been passing gas but has not had a bowel movement yet. Some persistent lochia with some improvement this morning. She is breast feeding. Constitutional: no fever, no chills or no sweats Denies shortness of breath or difficulty breathing Cardiovascular: no chest pain or no palpitations Breast: no breast pain Genitourinary (female): no dysuria Neurologic: no headache(s) Denies changes in vision Physical Exam <Brandie Ford MD - Last Filed: 09/04/22 07:50> General: Alert. Oriented to person, time, and place. Afebrile. No acute distress. Eyes: pupils equal and reactive to light bilaterally, extraocular movements intact. Cardiac: Regular rate and rhythm, no murmurs/rubs/gallops. Respiratory: Clear to auscultation bilaterally a/p, no wheezes/rales/rhonchi. No increased work of breathing. Symmetrical chest rise. No respiratory distress. Abdomen: Soft, nontender, nondistended. Bowel sounds present. Uterus: Uterine fundus firm, mildly tender, and palpable at the level of the umbilicus. Lower Extremities: No lower extremity edema or swelling. No deep calf pain. Earline's negative bilaterally. Psych: Euthymic affect. Mood and affect congruence. Regular speech rate and content. Results & Data <Brandie Ford MD - Last Filed: 09/04/22 07:50> Vital Signs (Past 12 Hours) Vital Signs Temp Pulse Pulse Resp BP BP Pulse Ox 09/04/22 03:10 36.5 C 77 16 100/68 97 09/03/22 23:40 36.5 C 78 16 103/66 96 09/03/22 20:15 90 18 102/67 96 09/03/22 18:48 20 09/03/22 19:20 88 09/03/22 19:20 113/67 09/03/22 19:05 111 H 09/03/22 19:05 124/64 09/03/22 18:50 94 H 09/03/22 18:50 119/70 O2 Del Method 09/04/22 03:10 Room Air 09/03/22 23:40 Room Air 09/03/22 20:15 Room Air 09/03/22 18:48 09/03/22 19:20 09/03/22 19:20 09/03/22 19:05 09/03/22 19:05 09/03/22 18:50 09/03/22 18:50 <Claudia Magana MD, FACOG - Last Filed: 09/04/22 07:56> Co-Signing Physician Notes Resident Physician Supervision Note: I was present with Dr. Ford during the history and exam. I discussed the case with the resident and agree with the findings and plan as documented in the note. Any exceptions or clarifications are listed here: stable, routine care, rhpos, ri, . did review instructions for dc in case opts to go home. abd soft ff 2 down nt. nt calves. Documented By: Claudia Magana MD, FACOG Resident Activity Tracking <Brandie Ford MD - Last Filed: 09/04/22 07:50> Resident Involvement: Resident Care Provided Care Provided: OB Delivery
[2022-09-04] MEDS: IBUPROFEN 600 MG TAB PO PRN ×4 (08:40→21:32)
[2022-09-04] MEDS: CETIRIZINE HCL 10 MG TABLET PO SCH (08:41)
[2022-09-04] MEDS: LEVOTHYROXINE SODIUM 125 MCG TABLET PO SCH (08:41)
[2022-09-04] MEDS: DOCUSATE SODIUM 100 MG CAP PO SCH ×2 (08:41→21:32)
[2022-09-04] MEDS: PRENATAL VITAMIN 1 TAB PO SCH (08:41)
--- NOTE | 2022-09-05 07:00 | Obstetrical Progress Note ---
Date of Service <Brandie Ford MD - Last Filed: 09/05/22 08:22> September 05, 2022 Assessment & Plan <Brandie Ford MD - Last Filed: 09/05/22 08:22> (1) Spontaneous vaginal delivery: Patient with the above mentioned history and findings was evaluated at bedside and found awake, alert, oriented in all spheres, afebrile, and in no acute distress. Vital signs showed no fever and blood pressures remained stable. She has not had symptoms of severity (e.g. vision changes, headaches, oliguria, RUQ pain, etc.). Her pain intensity is rated as a 2 in a 10-point scale, and is adequately controlled with analgesia. Her blood type is A positive and hemoglobin is adequate at 10.5 g/dL. Serologies are negative for GBS and patient is Rubella immune. Overall, patient is doing well clinically. Therefore, will encourage ambulation as tolerated and will resume regular diet. Will continue monitoring pain levels and management with Motrin PRN. Patient is encouraged to breastfeed and to notify changes in normal lochia such as excessive bleeding (using more than 1 pad per hour), foul smell, or purulent appearance. Discharge instructions discussed. She is to make an appointment with her OB in 6 weeks for follow up evaluation. All questions were answered. <Elizabeth Velasco DO - Last Filed: 09/05/22 08:29> (1) Spontaneous vaginal delivery: Subjective <Brandie Ford MD - Last Filed: 09/05/22 08:22> Мария is a 31 y/o female who is now PPD # 2 following Spontaneous Vaginal Delivery at 39 4/7 weeks after PROM on 7am of yesterday morning. Reports feeling well overall this morning. Refers mild abdominal cramping & 2/10 pain well managed on analgesics. Voiding spontaneously without difficulty. Tolerating meals overnight and able to ambulate some. She has been passing gas but has not had a bowel movement yet. Some persistent lochia with some improvement this morning. She is breast feeding. Constitutional: no fever, no chills or no sweats Denies shortness of breath or difficulty breathing Cardiovascular: no chest pain or no palpitations Breast: no breast pain Genitourinary (female): no dysuria Neurologic: no headache(s) Denies changes in vision Physical Exam <Brandie Ford MD - Last Filed: 09/05/22 08:22> General: Alert. Oriented to person, time, and place. Afebrile. No acute distress. Eyes: pupils equal and reactive to light bilaterally, extraocular movements intact. Cardiac: Regular rate and rhythm, no murmurs/rubs/gallops. Respiratory: Clear to auscultation bilaterally a/p, no wheezes/rales/rhonchi. No increased work of breathing. Symmetrical chest rise. No respiratory distress. Abdomen: Soft, nontender, nondistended. Bowel sounds present. Uterus: Uterine fundus firm, non- tender, and palpable at the level of the umbilicus. Lower Extremities: No lower extremity edema or swelling. No deep calf pain. Earline's negative bilaterally. Psych: Euthymic affect. Mood and affect congruence. Regular speech rate and content. Results & Data <Brandie Fodr MD - Last Filed: 09/05/22 08:22> Vital Signs (Past 12 Hours) Vital Signs Temp Pulse Resp BP Pulse Ox O2 Del Method 09/04/22 23:15 36.6 C 74 16 132/81 98 Room Air 09/04/22 20:00 36.3 C L 83 16 100/68 97 Room Air <Elizabeth Velasco DO - Last Filed: 09/05/22 08:29> Co-Signing Physician Notes Resident Physician Supervision Note: I was present with Dr. Ford during the history and exam. I discussed the case with the resident and agree with the findings and plan as documented in the note. Any exceptions or clarifications are listed here: PPD#2 doing well. DC instructions reviewed, followup 6w PP. Documented By: Elizabeth Velasco DO Resident Activity Tracking <Brandie Ford MD - Last Filed: 09/05/22 08:22> Resident Involvement: Resident Care Provided Care Provided: OB Delivery
[2022-09-05] MEDS: IBUPROFEN 600 MG TAB PO PRN (08:36)
[2022-09-05] MEDS: LEVOTHYROXINE SODIUM 125 MCG TABLET PO SCH (08:37)
[2022-09-05] MEDS: PRENATAL VITAMIN 1 TAB PO SCH (08:37)
[2022-09-05] MEDS: CETIRIZINE HCL 10 MG TABLET PO SCH (08:37)
[2022-09-05] MEDS: DOCUSATE SODIUM 100 MG CAP PO SCH (08:38)
[2022-09-05] MEDS: ACETAMINOPHEN 325 MG TAB PO PRN (10:49)
== END 2022-09-05 11:00 | disposition home or self-care (01) | DRG 807 ==
LOC: OPB 09:08 → 4S1 09:09 → 4E2 19:54